=== PATIENT | female | born 2000 | race Caucasian/White ===

== ENCOUNTER 2019-02-21 12:40 | Emergency (ER) | payer OTHER ==
--- NOTE | 2019-02-21 12:54 | ED ---
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 Dizziness described as lightheadedness. Associated sx: diaphoretic, nausea, migraine, mild dyspnea, no appetite. Denies: CP. She thought she may have had a possible panic attack this AM when she found out election results that she had been waiting on. She says today spiraled. She was at the library until 0200 last night, woke up at 0600 to finish a paper, and has been awake since. 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 She sat down but it did not resolve. She also says she hasn't eaten recently. At bedside, she says she is feeling better. No past hospitalizations or surgeries. She had routine lab work done in 2017 that was normal. [facility]: currently. - History Of Current Complaint Chief Complaint: EDDizziness Stated Complaint: DIZZINESS PER PT Hx Obtained From: Patient Onset/Duration: Resolved Timing: Constant Severity Initially: Moderate Severity Currently: Moderate Character: Lightheaded Associated Signs And Symptoms: Positive: Nausea, Diaphoresis, SOB - mild dyspnea , Decreased Oral Intake - no appetite, Other: - pos migraine. Negative: Chest Pain PMH/Surg Hx/FS Hx/Imm Hx Previously Healthy: Yes Opthamlomology History: Denies: Hx Legally Blind EENT History: Denies: Hx Deafness Neurological History: Denies: Hx Dementia Infectious Disease History: No Infectious Disease History: Denies: Traveled Outside the [place] in Last 30 Days - Family History Known Family History: Positive: Diabetes - grandparent - Social History Occupation: Student Lives: Dormitory/Roommates Alcohol Use: None Hx Substance Use: No Substance Use Type: Reports: None Hx Tobacco Use: No Smoking Status (MU): Never Smoked Tobacco Review of Systems Positive: Skin Diaphoresis Negative: Chest Pain Positive: Other - pos: mild dyspnea Positive: Nausea, Other - pos: no appetite Neurological: Other - pos: dizziness Positive: Headache - migraine All Other Systems Reviewed And Are Negative: Yes Physical Exam - Summary Physical Exam Summary: Appearance: Well-appearing, Well-nourished, lying in bed comfortably Skin: Warm, dry, no obvious rash Eyes: sclera anicteric, no conjunctival pallor ENT: mucous membranes moist, pharynx appears normal Neck: Supple, nontender Respiratory: Clear to auscultation, no signs of respiratory distress Cardiovascular: Normal S1, S2. No murmurs. Normal distal pulses in tibial and radial bilaterally. Abdomen: Soft, nontender, normal active bowel sounds present Musculoskeletal: Normal, Strength/ROM Intact Neurological: A&Ox3, awake and alert, mentation is normal, speech is fluent and appropriate Psychiatric: affect is normal, does not appear anxious or depressed Triage Information Reviewed: Yes Vital Signs On Initial Exam: Initial Vitals Temp Pulse Resp BP Pulse Ox 97.3 F 76 18 137/86 100 02/21/19 12:41 02/21/19 12:41 02/21/19 12:41 02/21/19 12:41 02/21/19 12:41 Vital Signs Reviewed: Yes Diagnostics - Vital Signs Vital Signs Temp Pulse Resp BP Pulse Ox 02/21/19 12:41 97.3 F 76 18 137/86 100 - Laboratory Lab Statement: Any lab studies that have been ordered have been reviewed, and results considered in the medical decision making process. 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 Associated sx: diaphoretic, nausea, migraine, mild dyspnea, no appetite. Denies: CP. She thought she may have had a possible panic attack. Will discharge patient home. - Diagnoses Provider Diagnoses: Panic attack as reaction to stress Discharge - Sign-Out/Discharge Documenting (check all that apply): Patient Departure - DC Patient Received Moderate/Deep Sedation with Procedure: No - Discharge Plan Condition: Stable Disposition: HOME Patient Education Materials: Panic Attack (ED) Referrals: [facility] [Outside] - If Needed [facility] [Outside] - Billing Disposition and Condition Condition: STABLE Disposition: Home - Attestation Statements Document Initiated by Scribe: Yes Documenting Scribe: Kriss Hwang Provider For Whom Scribe is Documenting (Include Credential): Dr. Saw Gambino MD Scribe Attestation: Kriss Anglin scribed for Dr. Saw Gambino MD on 04/16/19 at 1432. Scribe Documentation Reviewed: Yes Provider Attestation: The documentation as recorded by the scribe, Kriss Hwang accurately reflects the service I personally performed and the decisions made by me, Dr. Saw Gambino MD Status of Scribe Document: Viewed
[2019-02-21 13:32] VITALS: BP 122/68
== END 2019-02-21 13:31 | disposition home or self-care (01) ==
LOC: ED 12:40
DX: F41.0 Panic disorder [episodic paroxysmal anxiety] (principal); F43.9 Reaction to severe stress, unspecified
CPT/HCPCS: 99281